=== PATIENT | male | born 1990 | race Caucasian/White ===

== ENCOUNTER → 2016-07-03 | Outpatient (REF) ==
[~2016-07-03] MED LIST: DAILY VITAMIN1 TAB PO; FISH OIL1000 MG PO
== END ==
LOC: WSOH 12:42
DX: Z11.1 Encounter for screening for respiratory tuberculosis (principal)

== ENCOUNTER → 2016-07-23 | Outpatient (REF) | LOC: WSOH 08:28 | DX: Z00.00 Encounter for general adult medical examination without abnormal findings (principal) ==

== ENCOUNTER → 2016-09-19 | Outpatient (CLI) | payer OTHER | END | disposition home or self-care (01) | LOC: COL.RAD 08:15 | DX: K82.9 Disease of gallbladder, unspecified (principal); I08.1 Rheumatic disorders of both mitral and tricuspid valves; Z00.00 Encounter for general adult medical examination without abnormal findings ==

== ENCOUNTER 2019-08-18 13:17 | Outpatient (RCR) | payer OTHER | END 2019-09-29 12:56 | disposition home or self-care (01) | LOC: WSOH 13:17 | DX: H93.232 Hyperacusis, left ear (principal); T78.40XA Allergy, unspecified, initial encounter; I73.00 Raynaud's syndrome without gangrene; Y99.0 Civilian activity done for income or pay ==

== ENCOUNTER → 2021-04-25 | Outpatient (CLI) | payer OTHER | LOC: COL.VAS 12:10 | DX: I51.7 Cardiomegaly (principal) ==